=== PATIENT | male | born 1945 | race Caucasian/White ===

== ENCOUNTER 2018-09-04 11:22 | Emergency (ER) | payer OTHER ==
[~2018-09-04] VITALS: Ht 172.7 cm; Wt 66.7 kg
[2018-09-04 11:29] VITALS: Ht 172.7 cm; Wt 66.7 kg
--- NOTE | 2018-09-04 12:49 | ERD ---
ER Documentation Chief Complaint Chief Complaint back pain radiating to rt leg HPI 73-year-old male, presents to the emergency department, complaining of 1 month with worsening of bilateral back pain worse in the right side, radiating to the right posterior tight. The pain is dull, constant, 6/10, worsened by lateral rotation. The patient denies distal weakness, numbness or tingling. No fever or rashes. No urinary symptoms. ROS All systems reviewed and are negative except as per history of present illness. Medications Home Meds Active Scripts Ibuprofen* (Motrin*) 400 Mg Tab, 400 MG PO Q8, #15 TAB Prov:THANH BARBOUR MD 09/04/18 Hydrocodone/Acetaminophen (Clarkia 5-325 Tablet) 1 Each Tablet, 1 TAB PO QHS PRN for PAIN, #7 TAB Prov:THANH BARBOUR MD 09/04/18 Allergies Allergies: Coded Allergies: No Known Allergy (Unverified , 09/04/18) PMhx/Soc Hx Alcohol Use: No Hx Substance Use: No Hx Tobacco Use: No Smoking Status: Never smoker Physical Exam Vitals Vital Signs Date Temp Pulse Resp B/P (MAP) Pulse Ox O2 O2 Flow FiO2 Time Delivery Rate 09/04/18 98.3 77 18 148/79 98 Room Air 14:35 (102) 09/04/18 98.3 81 18 151/93 96 11:29 (112) Physical Exam Const: No acute distress Head: Atraumatic Eyes: Normal Conjunctiva ENT: Normal External Ears, Nose and Mouth. Neck: Full range of motion. No meningismus. Resp: Clear to auscultation bilaterally Cardio: Regular rate and rhythm, no murmurs Abd: Soft, non tender, non distended. Normal bowel sounds Skin: No petechiae or rashes Back: Normal inspection, no vertebral tenderness, bilateral lumbar muscle spasm noticed, decreased range of motion for lateral rotation and flexion due to pain. Distal neurovascular exam intact. Ext: No cyanosis, or edema Neur: Awake and alert Psych: Normal Mood and Affect Results 24 hrs Current Medications Medications Dose Sig/Milton Start Time Status Last (Trade) Ordered Route PRN Stop Time Admin Dose Reason Admin Ketorolac 15 mg ONCE STAT 09/04/18 DC 09/04/18 Tromethamine IM 12:57 13:02 (Toradol) 09/04/18 12:59 [id number] [place] [id number] Radiology Main Line: [phone] DIAGNOSTIC IMAGING REPORT Patient: MELISSA WILSON : 1945 Age: 73 Sex: M MR #: [id number] DOS: 09/04/18 1257 Ordering MD: THANH BARBOUR MD Location: [facility] Room/Bed: PROCEDURE: XR Lumbar Spine. CLINICAL INDICATION: Pain TECHNIQUE: AP, lateral and cone-down lateral view of the lumbar spine were obtained. COMPARISON: No prior studies are available for comparison. FINDINGS: There is normal vertebral mineralization and alignment. No fracture or subluxation is seen. The disc spaces are normal in appearance. The posterior elements are unremarkable. The soft tissues appear normal. IMPRESSION: Unremarkable lumbar spine. .Grey Arriaza MD, MD Date Time Electronically viewed and signed by .Grey Arriaza MD, MD on 09/04/2018 14:06 .A/ CC: THANH BARBOUR MD [id number] Procedures/MDM Differential diagnosis include but not limited to: lumbar sprain/strain, sciatica, herniated disk, UTI less likely pyelo, kidney stone. Neurovascular exam grossly intact. no clinical findings suggestive of acute infectious process, no acute deformity, no edema, no rashes. Physical examination and clinical presentation consistent most likely with acute on chronic back pain with sciatica. During the ED course the patient received treatment with Toradol IM presenting overall improvement of the symptoms. Results and clinical impression discussed with the patient who agrees with management. The patient is stable to be treated outpatient and will be discharged home with recommendations and close monitoring The patient was instructed to follow up with the primary care provider in the next 48h. If symptoms persist, worsen or new symptoms develop, then patient should return to the ED immediately. Instructions explained and given to patient with acknowledgment and demonstrated understanding. Disclaimer: Inadvertent spelling and grammatical errors are likely due to EHR/dictation software use and do not reflect on the overall quality of patient care. Also, please note that the electronic time recorded on this note does not necessarily reflect the actual time of the patient encounter. Departure Diagnosis: Primary Impression: Acute exacerbation of chronic low back pain Condition: Stable Additional Instructions: Muchas eliza por [facility] para [place] servicio. Esperamos que en [place] visita a la matthew de emergencia [place] problema medico haya sido solucionado y que se sienta mucho mejor. Para estar seguros que [place] mejoria sigue en proceso, le pedimos el favor de hacer martell daniel de seguimiento medico con [place] doctor primario en los proximos 2-4 zelaya. Lleve con usted estos documentos y las medicinas recetadas. Si jonna sintomas empeoran, NO SE ESPERE, por favor regrese a matthew de emergencia INMEDIATAMENTE. En kaylee que usted no tenga un mdico de atencin primaria: Llame al mdico o clnica comunitaria de referencia que aparece abajo yousuf las horas de consultorio para hacer martell daniel para que le vean. CLINICAS: [facility] [phone] [facility] [phone] [facility] [address]. [facility] [phone] [facility] [phone] [facility] [phone] [address] [facility] [phone] MD Sep 04, 2018 12:49
[2018-09-04] MEDS ORDERED: KETOROLAC 15 MG INJ IM STA (12:57)
[2018-09-04] MEDS ORDERED: IBUP-1561 PO (14:20)
[2018-09-04] MEDS ORDERED: HYDR-4011 PO (14:20)
[2018-09-04 14:35] VITALS: BP 148/79; PULSE 77; RESP 18
== END 2018-09-04 14:35 | disposition home or self-care (01) ==
LOC: FTE 11:22
DX: M54.5 Low back pain (principal)
CPT/HCPCS: 72100; 96372; 99284; J1885